=== PATIENT | female | born 1955 | race Caucasian/White ===

== ENCOUNTER 2016-09-26 07:32 | Day surgery (SDC) | payer MEDICARE ==
[~2016-09-26 07:32] MED LIST: Acetaminophen TAB* 325 MG PO PRN; Buffered Lidocaine 0.9% SYRIN* 5 ML/SYR SYRINGE INTRADERM ONE
[2016-09-26] MEDS ORDERED: Midazolam* 1 MG/ML 2 ML VIAL (2 MG) ONE (09:00)
[2016-09-26] MEDS ORDERED: fentaNYL* 50 MCG/ML 2 ML VIAL (100 MCG VIAL) ONE (09:00)
[2016-09-26 09:29] VITALS: BP 101/60
--- NOTE | 2016-09-26 11:28 | OP ---
OPERATIVE REPORT: DATE OF OPERATION: 09/26/16 DATE OF : 53 SURGEON: Dr. Joshua Arrieta. WOOL AND PELT GRADER: None. ANESTHESIA: Topical with intravenous sedation. PRE-OP DIAGNOSIS: Cataract, right eye. POST-OP DIAGNOSIS: Cataract, right eye. OPERATIVE PROCEDURE: Phacoemulsification and cataract extraction with posterior chamber intraocular lens implant, right eye. COMPLICATIONS: None. BLOOD LOSS: None. DESCRIPTION OF PROCEDURE: The patient was brought to the operating room and received a small amount of intravenous sedation. A drop of Tetracaine was placed in her right eye. She was prepped and dr diego in the usual sterile fashion for ophthalmic surgery and attention was directed to the right eye where a speculum was placed. A paracentesis was created at the 11 o'clock position and 0.1 cc of 1 percent preservative-free Lidocaine was injected into the anterior chamber followed by DisCoVisc. The eye was digitally stabilized while a 2.75 mm keratome was used to create a triplanar clear corne al incision at the 9 o'clock position. A continuous curvilinear capsulorrhexis was created with a c ystotome and Utrata forceps. BSS on a cannula was used to hydrodissect the lens from the capsule. P hacoemulsification was performed in a asgqiz-jpo-lokjoeg technique to create four fragments which we re removed. Residual cortical material was removed with irrigation and aspiration. DisCoVisc was u sed to inflate the capsular bag and an AU00T0 9.5 diopter lens was folded and inserted into the caps ular bag. DisCoVisc was removed using irrigation and aspiration. BSS on a cannula was used to hydr ate the corneal stroma and seal the wound. At the end of the case the pupil was round and the lens was centered. The eye was of normal pressure and the wound was water tight. The speculum was remov ed and topical Maxitrol ointment was placed on the surface of the eye. The eye was closed, patched and shielded and the patient was sent to the recovery room in stable condition with post operative i nstructions and follow-up appointment given. [id number]/[facility] #: [id number]
[2016-09-26] MEDS ORDERED: Flurbiprofen 0.03% OPTH.SOL* 2.5 ML BTL ONE (11:53)
[2016-09-26] MEDS ORDERED: Tropicamide 1% OPTH.SOL* BTL ONE (11:53)
[2016-09-26] MEDS ORDERED: Cyclopentolate 1% OPTH.SOL* 2 ML BTL ONE (11:53)
[2016-09-26] MEDS ORDERED: Tetracaine 0.5% OPTH.SOL 4 ML* 1 DROP BTL ONE (11:53)
[2016-09-26] MEDS ORDERED: Neomycin/Polymy/Dex OPHTH.OIN* 3.5 GM ONE (11:53)
[2016-09-26] MEDS ORDERED: Buffered Lidocaine 0.9% SYRIN* 5 ML/SYR SYRINGE ONE (11:53)
[2016-09-26] MEDS ORDERED: Phenylephrine 2.5% OPTH.SOL* 2 ML BTL ONE (11:53)
[2016-09-26] MEDS ORDERED: Lidocaine 1% MPF* 2 ML VIAL ONE (11:53)
== END 2016-09-26 09:36 | disposition home or self-care (01) ==
LOC: OREAST 07:32
PROVIDERS: ATTEND Ophthalmology
DX: H25.11 Age-related nuclear cataract, right eye (principal); E11.9 Type 2 diabetes mellitus without complications; Z79.84 Long term (current) use of oral hypoglycemic drugs; J45.909 Unspecified asthma, uncomplicated; I10 Essential (primary) hypertension
CPT/HCPCS: A9270-GY; J2250; J3010

== ENCOUNTER 2016-10-03 10:15 | Day surgery (SDC) | payer MEDICARE ==
[~2016-10-03 10:15] MED LIST changes: +Buffered Lidocaine 0.9% SYRIN* 5 ML/SYR SYRINGE ONE; +Cyclopentolate 1% OPTH.SOL* 2 ML BTL ONE; +Flurbiprofen 0.03% OPTH.SOL* 2.5 ML BTL ONE; +Lidocaine 1% MPF* 2 ML VIAL ONE; +Neomycin/Polymy/Dex OPHTH.OIN* 3.5 GM ONE; +Phenylephr/Ketorolac 1%/0.3% OPH DROP BTL ONE; +Phenylephrine 2.5% OPTH.SOL* 2 ML BTL ONE; +Tetracaine 0.5% OPTH.SOL 4 ML* 1 DROP BTL ONE; +Tropicamide 1% OPTH.SOL* BTL ONE
[2016-10-03] MEDS ORDERED: fentaNYL* 50 MCG/ML 2 ML VIAL (100 MCG VIAL) ONE (10:59)
[2016-10-03] MEDS ORDERED: Midazolam* 1 MG/ML 2 ML VIAL (2 MG) ONE ×2 (10:59→11:33)
[2016-10-03] MEDS ORDERED: Acetaminophen TAB* 325 MG PO PRN (11:49)
[2016-10-03 12:06] VITALS: BP 113/52
[2016-10-03] MEDS ORDERED: Tetracaine 0.5% OPTH.SOL 4 ML* 1 DROP BTL ONE (14:24)
[2016-10-03] MEDS ORDERED: Lidocaine 1% MPF* 2 ML VIAL ONE (14:24)
[2016-10-03] MEDS ORDERED: Phenylephrine 2.5% OPTH.SOL* 2 ML BTL ONE (14:24)
[2016-10-03] MEDS ORDERED: Tropicamide 1% OPTH.SOL* BTL ONE (14:24)
[2016-10-03] MEDS ORDERED: Cyclopentolate 1% OPTH.SOL* 2 ML BTL ONE (14:24)
[2016-10-03] MEDS ORDERED: Flurbiprofen 0.03% OPTH.SOL* 2.5 ML BTL ONE (14:24)
[2016-10-03] MEDS ORDERED: Neomycin/Polymy/Dex OPHTH.OIN* 3.5 GM ONE (14:24)
[2016-10-03] MEDS ORDERED: Buffered Lidocaine 0.9% SYRIN* 5 ML/SYR SYRINGE ONE (14:24)
--- NOTE | 2016-10-04 00:45 | OP ---
DATE OF OPERATION: 10/03/16 [facility] DATE OF : 53 SURGEON: Dr. Joshua Arrieta PHYSICIAN RELATIONS MANAGER: None. ANESTHESIOLOGIST: Dayday Jones MD ANESTHESIA: Topical with intravenous sedation. PRE-OP DIAGNOSIS: Cataract, left eye. POST-OP DIAGNOSIS: Cataract, left eye. OPERATIVE PROCEDURE: Phacoemulsification and cataract extraction with posterior chamber intraocular lens implant, left eye. COMPLICATIONS: None. BLOOD LOSS: None. DESCRIPTION OF PROCEDURE: The patient was brought to the operating room and received a small amount of intravenous sedation. A drop of Tetracaine was placed in her left eye. She was prepped and draped in the usual sterile fashion for ophthalmic surgery and attention was directed to the left eye where a speculum was placed. A paracentesis was created at the 5 o'clock position and 0.1 cc of 1 percent preservative-free Lidocaine was injected into the anterior chamber followed by DisCoVisc. The eye was digitally stabilized while a 2.75 mm keratome was used to create a triplanar clear corneal incision at the 3 o'clock position. A continuous curvilinear capsulorrhexis was created with a cystotome and Utrata forceps. BSS on a cannula was used to hydrodissect the lens from the capsule. Phacoemulsification was performed in a divide-and- conquer technique to create four fragments which were removed. Residual cortical material was removed with irrigation and aspiration. DisCoVisc was used to inflate the capsular bag and an AU00T0 13 diopter lens was folded and inserted into the capsular bag. DisCoVisc was removed using irrigation and aspiration. BSS on a cannula was used to hydrate the corneal stroma and seal the wound. At the end of the case the pupil was round and the lens was centered. The eye was of normal pressure and the wound was water tight. The speculum was removed and topical Maxitrol ointment was placed on the surface of the eye. The eye was closed, patched and shielded and the patient was sent to the recovery room in stable condition with post operative instructions and follow-up appointment given. [id number]/[facility] #: [id number] MTDD
== END 2016-10-03 12:04 | disposition home or self-care (01) ==
LOC: OREAST 10:15
PROVIDERS: ATTEND Ophthalmology
DX: H25.12 Age-related nuclear cataract, left eye (principal); E11.9 Type 2 diabetes mellitus without complications; Z79.84 Long term (current) use of oral hypoglycemic drugs; I10 Essential (primary) hypertension; J45.909 Unspecified asthma, uncomplicated
CPT/HCPCS: A9270-GY; C9447; J2250; J3010; V2632

== ENCOUNTER 2019-07-27 09:51 | Inpatient (IN) ==
[2019-07-27] MEDS ORDERED: NS 0.9% 1000 ml BAG 1,000 ML IV ONE (09:57)
[2019-07-27 11:00] LABS: ABS Basophils 0.1 10^3/ul (0-0.2); ABS Lymphocytes 1.8 10^3/ul (1.0-4.8); ABS Monocytes 0.9 10^3/ul (0-0.8); Eosinophil % 0.1 %; Hematocrit 39 % (35-47); Hemoglobin 13.1 g/dL (12.0-16.0); Lymphocyte % 13.7 %; Mean Corpuscular HGB Conc 34 g/dL (31-36); Mean Corpuscular Hemoglobin 29 pg (27-31); Mean Corpuscular Volume 86 fL (80-97); Mean Platelet Volume 5.9 fL (7.4-10.4); Platelet Count 334 10^3/uL (150-450); Red Blood Count 4.53 10^6 /uL (3.70-4.87); Red Cell Distribution Width 13 % (10-15); White Blood Count 13.3 10^3/uL (3.5-10.8)
[2019-07-27 11:14] LABS: Activated Partial Thrombo Time 34.2 seconds (26.0-38.0); INR 1.09 (0.82-1.09)
[2019-07-27 11:18] LABS: ALT 17 U/L (7-52); AST 20 U/L (13-39); Albumin 4.4 g/dL (3.2-5.2); Albumin/Globulin Ratio 1.3 (1-3); Alkaline Phosphatase 71 U/L (34-104); Anion Gap 11 mmol/L (2-11); BUN/Creatinine Ratio 17.9 (8-20); Blood Urea Nitrogen 19 mg/dL (6-24); CO2 Carbon Dioxide 24 mmol/L (22-32); Calcium 10.9 mg/dL (8.6-10.3); Chloride 102 mmol/L (101-111); Cholesterol 210 mg/dL; Globulin 3.5 g/dL (2-4); Glucose 121 mg/dL (70-100); LDL Cholesterol 122 mg/dL; Potassium 4.3 mmol/L (3.5-5.0); Sodium 137 mmol/L (135-145); Total Protein 7.9 g/dL (6.4-8.9); Triglycerides 185 mg/dL
[2019-07-27] MEDS ORDERED: Iodixanol (CONTRAST) 320 MG/ML 100 ML SDV IV ONE (12:59)
[2019-07-27] MEDS ORDERED: NS 0.9% 1000 ml BAG 1,000 ML IV SCH ×2 (13:00→22:15)
[2019-07-27 13:05] LABS: Alcohol, S < 10 mg/dL (<10)
[2019-07-27 13:05] LABS: Urine Appearance Clear; Urine Bilirubin Negative (Negative); Urine Blood Negative (Negative); Urine Color Yellow; Urine Glucose Negative (Negative); Urine Ketones 1+ (Negative); Urine Nitrite Negative (Negative); Urine Protein Negative (Negative); Urine Specific Gravity 1.015 (1.010-1.030); Urine Urobilinogen Negative (Negative)
[2019-07-27 13:40] LABS: Urine Benzodiazepine Screen None Detected (None Detect); Urine Opiates Screen Presumptive Positive (None Detect)
[2019-07-27] MEDS: Heparin 5000 UNITS/ML 1 mL VIAL SUBCUT SCH ×2 (14:22→20:30)
[2019-07-27 14:23] LABS: TSH (Thyroid Stimulating Horm) 0.15 mcIU/mL (0.34-5.60)
[2019-07-27 15:23] LABS: Folate > 20.00 ng/mL (>3.99)
[2019-07-27 17:04] LABS: Free T4 1.04 ng/dL (0.61-1.12)
[2019-07-27] MEDS: fentaNYL PATCH 50 MCG/HR 1 PATCH TRANSDERM SCH (17:09)
[2019-07-27] MEDS: fentaNYL Patch Check Q Shift NOTE FOLLOW UP SCH (18:39)
[2019-07-27] MEDS: Mometasone/Formoter 200/5 MDI INH SCH (19:15)
[2019-07-27] MEDS ORDERED: Thiamine 100 MG/ML 2 ml VIAL 500 MG in NS 0.9% 250 ml 250 ML IV ONE (21:00)
[2019-07-28] MEDS: Heparin 5000 UNITS/ML 1 mL VIAL SUBCUT SCH ×3 (05:08→20:50)
[2019-07-28 06:37] LABS: ABS Monocytes 0.9 10^3/ul (0-0.8); Eosinophil % 0.4 %; Hematocrit 31 % (35-47); Hemoglobin 10.6 g/dL (12.0-16.0); Lymphocyte % 26.3 %; Mean Corpuscular HGB Conc 34 g/dL (31-36); Mean Corpuscular Hemoglobin 29 pg (27-31); Mean Corpuscular Volume 86 fL (80-97); Mean Platelet Volume 5.8 fL (7.4-10.4); Platelet Count 284 10^3/uL (150-450); Red Blood Count 3.61 10^6 /uL (3.70-4.87); Red Cell Distribution Width 13 % (10-15); White Blood Count 11.3 10^3/uL (3.5-10.8)
[2019-07-28 06:41] LABS: INR 1.1 (0.82-1.09)
[2019-07-28] MEDS: fentaNYL Patch Check Q Shift NOTE FOLLOW UP SCH ×2 (06:49→18:54)
[2019-07-28 06:55] LABS: Calcium 9.3 mg/dL (8.6-10.3); EGFR African American 67.3 (>60); EGFR Non-African American 55.6 (>60); Potassium 3.9 mmol/L (3.5-5.0)
[2019-07-28] MEDS: Mometasone/Formoter 200/5 MDI INH SCH ×2 (07:35→19:27)
[2019-07-28] MEDS: DULoxetine DR 60 mg CAP PO SCH (08:32)
[2019-07-28] MEDS ORDERED: Perflutren Lipid Microsphere 3 ML VIAL ONE (14:35)
[2019-07-28] MEDS ORDERED: Gadoteridol (CONTRAST) 279.3 MG/ML 10 ML IV ONE (15:39)
[2019-07-28] MEDS ORDERED: Ondansetron 4 mg VIAL 2 MG/ML 2 ml VIAL IV PRN (22:20)
[2019-07-29] MEDS: Heparin 5000 UNITS/ML 1 mL VIAL SUBCUT SCH ×3 (05:05→21:12)
[2019-07-29] MEDS: fentaNYL Patch Check Q Shift NOTE FOLLOW UP SCH ×2 (07:44→18:57)
[2019-07-29] MEDS: DULoxetine DR 60 mg CAP PO SCH (07:46)
[2019-07-29] MEDS: Mometasone/Formoter 200/5 MDI INH SCH ×2 (08:06→19:46)
[2019-07-29 08:55] LABS: C Reactive Protein 3.01 mg/L (<8.01)
[2019-07-29 11:11] LABS: TSH (Thyroid Stimulating Horm) 0.24 mcIU/mL (0.34-5.60)
[2019-07-30] MEDS: Heparin 5000 UNITS/ML 1 mL VIAL SUBCUT SCH ×2 (05:25→14:23)
[2019-07-30] MEDS: fentaNYL Patch Check Q Shift NOTE FOLLOW UP SCH (06:30)
[2019-07-30] MEDS: Mometasone/Formoter 200/5 MDI INH SCH (08:12)
[2019-07-30] MEDS: DULoxetine DR 60 mg CAP PO SCH (09:10)
[2019-07-30 12:14] VITALS: BP 138/93
[2019-07-30] MEDS: fentaNYL PATCH 50 MCG/HR 1 PATCH TRANSDERM SCH (14:26)
== END 2019-07-30 16:00 | disposition home health service (06) | DRG 92 ==
LOC: MEDTELE 09:51 → ED 09:51 → MEDTELE 14:00
PROVIDERS: ADMIT Internal Medicine; ATTEND Internal Medicine